=== PATIENT | male | born 1945 | race Caucasian/White ===

== ENCOUNTER 2021-11-03 13:37 | Outpatient (CLI) | payer MEDICARE ==
[2021-11-03 19:04] LABS: ALBUMIN 4.3 g/dL (3.2-5.5); ALBUMIN/GLOBULIN RATIO 1.3 (1.0-2.2); BILIRUBIN,TOTAL 0.7 mg/dL (0.2-1.0); CALCIUM 9.2 mg/dL (8.5-10.3); POTASSIUM 4.3 mmol/L (3.5-5.0); TOTAL PROTEIN 7.5 g/dL (6.7-8.2)
[2021-11-03 19:08] LABS: HCT - HEMATOCRIT 49.9 % (42.0-52.0); HGB - HEMOGLOBIN 16.8 g/dL (14.0-18.0); MEAN CORPUSCULAR HEMOGLOBIN 31.5 pg (27.0-31.0); MEAN CORPUSCULAR HGB CONC 33.7 g/dL (32.0-36.0); MEAN CORPUSCULAR VOLUME 93.6 fL (80.0-94.0); MEAN PLATELET VOLUME 9.9 fL (7.4-11.4); RED BLOOD COUNT 5.33 10^6/uL (4.70-6.10); RED CELL DISTRIBUTION WIDTH 14.2 % (12.0-15.0); WHITE BLOOD COUNT 7.2 x10^3/uL (4.8-10.8)
== END 2021-11-03 13:38 | disposition home or self-care (01) ==
LOC: LAB.S 13:37
PROVIDERS: ATTEND Internal Medicine Cardiovascular Disease
DX: I48.91 Unspecified atrial fibrillation (principal)
CPT/HCPCS: 36415; 80053; 85027

== ENCOUNTER 2023-01-29 08:00 | Outpatient (CLI) | payer MEDICARE, OTHER | END 2023-01-29 23:59 | disposition home or self-care (01) | LOC: LAB 08:00 | PROVIDERS: ATTEND Emergency Medicine | DX: H60.93 Unspecified otitis externa, bilateral (principal) | CPT/HCPCS: 87070 ==

== ENCOUNTER 2023-06-30 08:00 | Outpatient (CLI) | payer MEDICARE, OTHER ==
--- NOTE | 2023-07-01 10:16 | XRAY Report ---
PROCEDURE: Chest 2V INDICATIONS: DYSPNEA TECHNIQUE: 2 views of the chest were acquired. COMPARISON: CT 01/31/2010 FINDINGS: Surgical changes and devices: None. Lungs and pleura: No pleural effusions or pneumothorax. Lungs are clear. Mediastinum: Mediastinal contours appear normal. Heart size is normal. Bones and chest wall: No suspicious bony lesions. Overlying soft tissues appear unremarkable. IMPRESSION: No acute cardiopulmonary process. Reviewed by: Garcia Temple MD on 07/01/2023 10:15 AM PDT Approved by: Garcia Temple MD on 07/01/2023 10:15 AM PDT Station ID: [id number]
== END 2023-06-30 23:59 | disposition home or self-care (01) ==
LOC: DI.S 08:00
PROVIDERS: ATTEND Emergency Medicine
DX: R06.00 Dyspnea, unspecified (principal); I48.91 Unspecified atrial fibrillation

== ENCOUNTER 2023-06-30 19:29 | Emergency (ER) | payer MEDICARE, OTHER ==
[2023-06-30 20:08] LABS: BASOPHILS # (AUTO) 0.1 10^3/uL (0.0-0.1); BASOPHILS % (AUTO) 0.7 %; EOSINOPHILS # (AUTO) 0.2 10^3/uL (0.0-0.7); EOSINOPHILS % (AUTO) 1.7 %; HCT - HEMATOCRIT 52.8 % (42.0-52.0); HGB - HEMOGLOBIN 17.1 g/dL (14.0-18.0); LYMPHOCYTES # (AUTO) 2.1 10^3/uL (1.5-3.5); LYMPHOCYTES % (AUTO) 23.2 %; MEAN CORPUSCULAR HEMOGLOBIN 29.6 pg (27.0-31.0); MEAN CORPUSCULAR HGB CONC 32.4 g/dL (32.0-36.0); MEAN CORPUSCULAR VOLUME 91.3 fL (80.0-94.0); MEAN PLATELET VOLUME 9.1 fL (7.4-11.4); MONOCYTES # (AUTO) 0.9 10^3/uL (0.0-1.0); NEUTROPHILS # (AUTO) 5.8 10^3/uL (1.5-6.6); NEUTROPHILS % (AUTO) 64.2 %; PLT - PLATELET COUNT 259 10^3/uL (130-450); RED BLOOD COUNT 5.78 10^6/uL (4.70-6.10); RED CELL DISTRIBUTION WIDTH 14.5 % (12.0-15.0)
--- NOTE | 2023-06-30 20:12 | ED Physician Documentation ---
History of Present Illness - Stated complaint Stated Complaint: HIGH HR - Chief complaint Chief Complaint: Cardiac - History obtained from History obtained from: Patient - Additonal information Additional information: 78-year-old gentleman who is on Xarelto for atrial fibrillation felt inexplicably fatigued yesterday and today after picking up brush on his property. There is no shortness of breath nor was there any chest pain. He has a history of paroxysmal atrial fibrillation and feels like he might be in it. PD PAST MEDICAL HISTORY - Present Medications Home Medications: Ambulatory Orders Medication Instructions Recorded Confirmed Albuterol Sulf [Ventolin Hfa 1 - 2 puffs IH Q4HR PRN 06/30/23 06/30/23 Inhaler] Atorvastatin [Lipitor] 10 mg ORAL DAILY 06/30/23 06/30/23 Rivaroxaban [Xarelto] 20 mg PO DAILY 06/30/23 06/30/23 - Allergies Allergies/Adverse Reactions: Allergies Allergy/AdvReac Type Severity Reaction Status Date / Time No Known Drug Allergies Allergy Verified 06/30/23 19:45 PD ED PE NORMAL - Vitals Vital signs reviewed: Yes - General General: Alert and oriented X 3, No acute distress - HEENT HEENT: PERRL, EOMI - Cardiac Cardiac: Other (Irregularly irregular without murmur, rapid) - Respiratory Respiratory: No respiratory distress, Clear bilaterally - Abdomen Abdomen: Non tender - Extremities Extremities: No edema - Neuro Neuro: Alert and oriented X 3, Normal speech Results - Vitals Vitals: Vital Signs - 24 hr 06/30/23 06/30/23 06/30/23 19:32 20:08 21:40 Temperature 36.2 C L Heart Rate 123 H 136 H 110 H Respiratory 18 18 19 Rate Blood Pressure 121/93 H 143/102 H 106/80 O2 Saturation 98 96 96 06/30/23 22:30 Temperature Heart Rate 81 Respiratory 14 Rate Blood Pressure O2 Saturation Oxygen O2 Source Room air - EKG (time done) 1950 EKG releavant findings:: EKG personally interpreted by author of this note. Relevant findings are: Rate: Rate (enter#) (144) Rhythm: Atrial fibrillation [place]: Normal Ischemia: Non specific changes. No: ST elevation c/w ischemia - Labs Labs: Laboratory Tests 06/30/23 06/30/23 20:00 20:00 WBC 9.0 RBC 5.78 Hgb 17.1 Hct 52.8 H MCV 91.3 MCH 29.6 MCHC 32.4 RDW 14.5 Plt Count 259 MPV 9.1 Neut # (Auto) 5.8 Lymph # (Auto) 2.1 [place] # (Auto) 0.9 Eos # (Auto) 0.2 Baso # (Auto) 0.1 Absolute Nucleated RBC 0.00 Nucleated RBC % 0.0 Sodium 139 Potassium 3.6 Chloride 105 Carbon Dioxide 24 Anion Gap 10.0 BUN 23 H Creatinine 1.2 Estimated GFR (MDRD) 58 L Glucose 103 Calcium 9.7 Magnesium 1.9 Total Bilirubin 0.8 AST 19 ALT 22 Alkaline Phosphatase 82 Total Protein 6.9 Albumin 4.2 Globulin 2.7 Albumin/Globulin Ratio 1.6 TSH 4.66 Procedures - Procedural sedation Sedation prep: Informed consent, PE performed, ASA 2 - mild disease Sedation Medications: propofol (100mg ivp x 1) Mallampati classification: II Patient status during sedation: Unresponsive Sedation recovery: Recovered uneventfully Time in sedation (Minutes): 12 - Cardioversion - Major 1020pm Time of attempt: 22:20 Indication: Tachyarrhythmia Risks, benefits, alternatives explained to: Pt CS via: Pads, AP approach Sync: 100j Post cardioversion rhythm: NSR Performed by: ED MD ROJAS Medical Decision Making - ED course ED course: 78-year-old gentleman with symptomatic atrial fibrillation. He has no ischemic chest pain. He was in RVR. He was administered 20 mg of IV diltiazem with rate control. Subsequently labs were done which were unremarkable as far as CBC, CMP, TSH. He was started on procainamide drip which did not result in rhythm control and subsequently consented for synchronized cardioversion which went well and he was cardioverted into sinus rhythm after the first shock. He recovered well and was asymptomatic on discharge. Departure - Departure Disposition: 01 Home, Self Care Clinical Impression: Atrial fibrillation Qualifiers: Atrial fibrillation type: paroxysmal Qualified Code(s): I48.0 - Paroxysmal atrial fibrillation Condition: Good Record reviewed to determine appropriate education?: Yes Instructions: Atrial Fibrillation Dc Comments: You should call your gm and let them know you had an episode of symptomatic atrial fibrillation. For this we originally rate controlled with IV diltiazem and then did a procainamide drip. This did not convert you to normal sinus rhythm so after discussion and consent you were cardioverted under propofol sedation (100 mg) at a dose of 100 J successfully into normal sinus rhythm. Do not drive tonight. Return if worse. Forms: PCP List
[2023-06-30] MEDS: diltiaZEM INJ 5 MG/ML VIAL IVP STA (20:23)
[2023-06-30 20:26] LABS: ALBUMIN 4.2 g/dL (3.2-5.5); ALBUMIN/GLOBULIN RATIO 1.6 (1.0-2.2); BILIRUBIN,TOTAL 0.8 mg/dL (0.2-1.0); CALCIUM 9.7 mg/dL (8.5-10.3); CREATININE 1.2 mg/dL (0.6-1.3); MAGNESIUM 1.9 mg/dL (1.7-2.3); POTASSIUM 3.6 mmol/L (3.5-4.5); TOTAL PROTEIN 6.9 g/dL (6.4-8.9)
[2023-06-30] MEDS ORDERED: PROCAINAMIDE 1,000 MG/10 ML SYRINGE ONE (20:26)
[2023-06-30] MEDS: PROCAINAMIDE 1,000 MG in SODIUM CHLORIDE 0.9% 240 ML IV STA (20:28)
[2023-06-30 20:37] LABS: THYROID STIMULATING HORMONE 4.66 uIU/mL (0.34-5.60)
[2023-06-30] MEDS: PROPOFOL 200 MG/20 ML VIAL IVP STA (22:19)
[2023-06-30 23:11] VITALS: BP 112/85; O2SAT 96
== END 2023-06-30 23:05 | disposition home or self-care (01) ==
LOC: ED 19:29
DX: I48.0 Paroxysmal atrial fibrillation (principal); Z79.01 Long term (current) use of anticoagulants; R06.00 Dyspnea, unspecified
CPT/HCPCS: 36415; 71046; 80053; 83735; 84443; 85025; 92960; 93005; 96365; 96375; 99152; 99285; J2690

== ENCOUNTER 2023-07-12 13:38 | Emergency (ER) | payer MEDICARE, OTHER ==
[2023-07-12 13:55] VITALS: O2SAT 98
[2023-07-12 14:15] LABS: BASOPHILS # (AUTO) 0.1 10^3/uL (0.0-0.1); BASOPHILS % (AUTO) 0.8 %; EOSINOPHILS # (AUTO) 0.2 10^3/uL (0.0-0.7); EOSINOPHILS % (AUTO) 2.5 %; HCT - HEMATOCRIT 50.6 % (42.0-52.0); HGB - HEMOGLOBIN 16.5 g/dL (14.0-18.0); LYMPHOCYTES # (AUTO) 2.2 10^3/uL (1.5-3.5); LYMPHOCYTES % (AUTO) 26.3 %; MEAN CORPUSCULAR HEMOGLOBIN 30.1 pg (27.0-31.0); MEAN CORPUSCULAR HGB CONC 32.6 g/dL (32.0-36.0); MEAN CORPUSCULAR VOLUME 92.2 fL (80.0-94.0); MEAN PLATELET VOLUME 9.2 fL (7.4-11.4); MONOCYTES # (AUTO) 0.8 10^3/uL (0.0-1.0); MONOCYTES % (AUTO) 9.8 %; NEUTROPHILS # (AUTO) 5.1 10^3/uL (1.5-6.6); NEUTROPHILS % (AUTO) 60.1 %; PLT - PLATELET COUNT 229 10^3/uL (130-450); RED BLOOD COUNT 5.49 10^6/uL (4.70-6.10); RED CELL DISTRIBUTION WIDTH 14.2 % (12.0-15.0); WHITE BLOOD COUNT 8.5 x10^3/uL (4.8-10.8)
[2023-07-12 14:22] LABS: INR 2.3 (0.8-1.2); PT - PROTHROMBIN TIME 23.9 secs (9.9-12.6)
[2023-07-12 14:25] LABS: ALBUMIN 4.2 g/dL (3.2-5.5); ALBUMIN/GLOBULIN RATIO 1.5 (1.0-2.2); BILIRUBIN,TOTAL 0.6 mg/dL (0.2-1.0); CALCIUM 9.5 mg/dL (8.5-10.3); CREATININE 1.1 mg/dL (0.6-1.3); POTASSIUM 4.1 mmol/L (3.5-4.5)
--- NOTE | 2023-07-12 15:28 | ED Physician Documentation ---
PD HPI FOCAL NEURO - Stated complaint Stated Complaint: LEFT SIDED NUMBNESS - Chief complaint Chief Complaint: Neuro - History obtained from History obtained from: Patient - Additional information Additional information: 78-year-old gentleman with history of A-fib still maintained on Xarelto and had a Watchman procedure 5 days ago. He was sitting in his car today waiting for his family in the grocery store. He started develop weakness and numbness of both the left arm and leg which lasted about 3 minutes and resolved. Now feels completely back to normal. There is no associated chest pain or trouble breathing. He has been compliant with his Xarelto. No history of TIA or stroke. PD PAST MEDICAL HISTORY - Past Medical History Past Medical History: Yes Cardiovascular: High cholesterol, Atrial fibrillation Respiratory: Asthma Neuro: None Endocrine/Autoimmune: None GI: None : Kidney stones HEENT: None Psych: None Musculoskeletal: Osteoarthritis Derm: Eczema - Past Surgical History Past Surgical History: Yes Ortho: Arthroscopic surgery, Other Cardiovascular: Pacemaker - Present Medications Home Medications: Ambulatory Orders Medication Instructions Recorded Confirmed Albuterol Sulf [Ventolin Hfa 1 - 2 puffs IH Q4HR PRN 06/30/23 06/30/23 Inhaler] Atorvastatin [Lipitor] 10 mg ORAL DAILY 06/30/23 06/30/23 Rivaroxaban [Xarelto] 20 mg PO DAILY 06/30/23 06/30/23 - Allergies Allergies/Adverse Reactions: Allergies Allergy/AdvReac Type Severity Reaction Status Date / Time No Known Drug Allergies Allergy Verified 07/12/23 13:47 - Social History Does the pt smoke?: No Smoking Status: Never smoker Does the pt drink ETOH?: No Does the pt have substance abuse?: No - Immunizations Immunizations are current?: Yes PD ED PE NORMAL - Vitals Vital signs reviewed: Yes - General General: Alert and oriented X 3, No acute distress - HEENT HEENT: PERRL, EOMI - Neck Neck: Supple, no meningeal sign, No bony TTP - Cardiac Cardiac: RRR, No murmur - Respiratory Respiratory: No respiratory distress, Clear bilaterally - Abdomen Abdomen: Soft, Non tender - Back Back: No CVA TTP, No spinal TTP - Derm Derm: Normal color, Warm and dry - Extremities Extremities: No edema, No calf tenderness / cord - Neuro Neuro: Alert and oriented X 3, hot box checker 2-12 intact, Normal speech Eye Opening: Spontaneous Motor: Obeys Commands Verbal: Oriented GCS Score: 15 NIHSS - Time Time: 15:20 - Level of Consciousness Level of consciousness: (0) Alert, Keenly responsive LOC Questions: (0) Answers both Q's correct LOC Commands: (0) Performs both correctly - Gaze Best Gaze: (0) Normal - Visual Visual: (0) No loss - Facial Palsy Facial Palsy: (0) Normal, symmetrical movement - Motor Arms (both separate) Motor Arm (right): (0) No drift Motor Arm (left): (0) No drift - Motor Legs (both separate) Motor Leg (right): (0) No drift Motor Leg (left): (0) No drift - Limb Ataxia Limb Ataxia: (0) Absent - Sensory Sensory: (0) Normal - Best Language Best Language: (0) No aphasia - Dysarthria Dysarthria: (0) Normal - Extinction and Inattention (formally neg Extinction and inattention: (0) No abnormality - Total Score/Results Total Score/Result: 0 Results - Vitals Vitals: Vital Signs - 24 hr 07/12/23 07/12/23 13:47 16:52 Temperature 36.5 C Heart Rate 71 70 Respiratory 16 15 Rate Blood Pressure 142/81 H 127/74 O2 Saturation 98 98 Oxygen O2 Source Room air - EKG (time done) 1535 EKG releavant findings:: EKG personally interpreted by author of this note. Relevant findings are: Rate: Rate (enter#) (65) Rhythm: NSR [place]: Normal Intervals: Normal [place] QRS: Normal Ischemia: Normal ST segments - Labs Labs: Laboratory Tests 07/12/23 07/12/23 07/12/23 14:00 14:00 14:00 WBC 8.5 RBC 5.49 Hgb 16.5 Hct 50.6 MCV 92.2 MCH 30.1 MCHC 32.6 RDW 14.2 Plt Count 229 MPV 9.2 Neut # (Auto) 5.1 Lymph # (Auto) 2.2 [place] # (Auto) 0.8 Eos # (Auto) 0.2 Baso # (Auto) 0.1 Absolute Nucleated RBC 0.00 Nucleated RBC % 0.0 PT 23.9 H INR 2.3 H Sodium 137 Potassium 4.1 Chloride 105 Carbon Dioxide 25 Anion Gap 7.0 BUN 20 Creatinine 1.1 Estimated GFR (MDRD) 65 L Glucose 84 Calcium 9.5 Total Bilirubin 0.6 AST 20 ALT 28 Alkaline Phosphatase 86 Total Protein 7.0 Albumin 4.2 Globulin 2.8 Albumin/Globulin Ratio 1.5 Lipase 21 - Rads (name of study) CT of the head and CT angiography of the head were negative. Relevant Findings:: Final report received, EMP independent interpretation of test PD Medical Decision Making - ED course ED course: 78-year-old gentleman with a very short TIA today. Lasting only 3 minutes in the setting of recent watchman but still anticoagulated. His NIH stroke scale is 0 and initial workup in the emergency department demonstrates a normal CBC and CMP. He does have elevation in his INR likely related to DOAC use. We will obtain CT angiography of the head and neck to evaluate for any need for vascular intervention. Subsequent CT imaging and vascular imaging of the head and neck were negative for occlusion or carotid stenosis. He remained asymptomatic here. Discussed with him that he is probably maximally medically managed but does need to follow-up with his environment artist especially given the proximity to the Watchman procedure and recommended continuation of the Xarelto until told otherwise. Departure - Departure Disposition: 01 Home, Self Care Clinical Impression: TIA (transient ischemic attack) Condition: Good Record reviewed to determine appropriate education?: Yes Instructions: ED Transient Ischemic Attack Comments: CT angiography of the head and neck as well as CT of the head was negative. That said you still had a very short TIA today and given the proximity to your Watchman procedure recommend you continue your Xarelto and follow-up with your environment artist ALEX. Return if worse. Continue current medications. Forms: PCP List Discharge Date/Time: 07/12/23 16:57
[2023-07-12] MEDS ORDERED: iohexoL-300 100 ML VIAL ONE (15:41)
[2023-07-12] MEDS: iohexoL-300 100 ML VIAL IVP ONE (16:17)
--- NOTE | 2023-07-12 16:26 | CT Report ---
PROCEDURE: Head WO INDICATIONS: tia TECHNIQUE: Noncontrast 4.5 mm thick angled axial sections acquired from the foramen magnum to the vertex. For r adiation dose reduction, the following was used: automated exposure control, adjustment of mA and/or kV according to patient size. COMPARISON: None. FINDINGS: Image quality: Excellent. CSF spaces: Basal cisterns are patent. No extra-axial fluid collections. Ventricles are normal in size and shape. Brain: No midline shift. No intracranial masses or hemorrhage. Rainey-white matter interface is norm al. Skull and face: Calvarium and visualized facial bones are intact, without suspicious lesions. Sinuses: Visualized sinuses and mastoids are clear. IMPRESSION: No acute intracranial pathology. Reviewed by: Phu Cook MD on 07/12/2023 4:24 PM PDT Approved by: Phu Cook MD on 07/12/2023 4:24 PM PDT Station ID: [id number]
--- NOTE | 2023-07-12 16:28 | CT Report ---
PROCEDURE: Angio Head/Neck INDICATIONS: tia sx TECHNIQUE: After the administration of intravenous contrast, 1 mm thick sections acquired from the aortic arch t hrough the Teller of [place]t. 3-dimensional kblnszc-zigvpppis-jxalwqhnky (MIP) and/or volume renderin g reformats were acquired of the central intracranial vasculature and neck separately. For radiation dose reduction, the following was used: automated exposure control, adjustment of mA and/or kV acco rding to patient size. CONTRAST: 80ml [id number] COMPARISON: CT head from immediately prior to this study.. FINDINGS: Image quality: Diagnostic. HEAD CT: CSF Spaces: Basal cisterns are patent. No extra-axial fluid collections. Ventricles are normal in size and shape. Brain: No significant abnormality is seen for scanning technique. Skull and face: Calvarium and visualized facial bones appear intact, without suspicious lesions. Sinuses: Visualized sinuses and mastoids are clear. HEAD CT ANGIOGRAPHY: Anterior circulation: Intracranial internal carotid arteries are normal in size and flow. The flow within the paired anterior cerebral arteries is normal and symmetric. The flow within the middle cer ebral arteries is normal and symmetric. The anterior communicating artery is seen. No aneurysms are seen. Posterior circulation: Visualized portions of the vertebral arteries demonstrate normal caliber, and join to form a normal appearing basilar artery. Flow within the posterior cerebral arteries is norm al and symmetric. No aneurysms are seen. NECK CT ANGIOGRAPHY: Carotid system: The great vessels demonstrate a conventional anatomy as they arise from the aortic a rch. The origins of the common carotid arteries appear patent. The common carotid arteries demonstr ate normal caliber and courses. The bifurcation regions are both widely patent. The internal caroti d arteries demonstrate normal calibers and courses. Posterior circulation: The origins of the vertebral arteries both appear widely patent. The more ramirez perior extracranial portions of both vertebral arteries also demonstrate normal courses and calibers. They join to form a normal appearing basilar artery. Soft tissues: Visualized neck soft tissues demonstrate no suspicious abnormalities. Bones: No suspicious bony lesions. Visualized cervical spine appears normally aligned. IMPRESSION: No significant intracranial arterial abnormality is seen. No significant abnormality is seen within the arteries of the neck. The estimate of stenosis included in the report of the imaging study was calculated using the NASCET method Reviewed by: Phu Cook MD on 07/12/2023 4:27 PM PDT Approved by: Phu Cook MD on 07/12/2023 4:27 PM PDT Station ID: [id number]
[2023-07-12 17:00] VITALS: BP 127/74
== END 2023-07-12 16:57 | disposition home or self-care (01) ==
LOC: ED 13:38
DX: G45.9 Transient cerebral ischemic attack, unspecified (principal); E78.00 Pure hypercholesterolemia, unspecified; I48.91 Unspecified atrial fibrillation; Z79.01 Long term (current) use of anticoagulants; Z79.899 Other long term (current) drug therapy
CPT/HCPCS: 36415; 70450; 70496; 70498; 80053; 83690; 85025; 85610; 93005; 99283; 99284; Q9967

== ENCOUNTER 2023-09-29 10:28 | Emergency (ER) | payer MEDICARE, OTHER ==
--- NOTE | 2023-09-29 11:15 | ED Physician Documentation ---
PD HPI CHEST PAIN - Stated complaint Stated Complaint: DIZZINESS,IRREGULAR HR/BP - Chief complaint Chief Complaint: Cardiac - History obtained from History obtained from: Patient - History of Present Illness Timing - onset: How many hours ago (2-3), Today Timing - onset during: Rest, Light activity Timing - duration: Hours Timing - details: Abrupt onset, Still present Quality: Tightness. No: Pressure, Pain Location: Left chest Worsened by: No: Exertion Associated symptoms: Shortness of air, Feeling faint / dizzy, Palpitations (feeling like heart is fast and his watch states rate 120-170 during the past couple hours.) Similar symptoms before: Diagnosis (similar to atrial fib episodes in the past, most recent about 3 months ago and was cardioverted in ED.) Recently seen: Surgery (knee replacement 6 weeks ago and Watchman placement 2 months ago. No problems with either.) Review of Systems Constitutional: denies: Fever, Chills Nose: denies: Rhinorrhea / runny nose, Congestion Throat: denies: Sore throat Cardiac: reports: Palpitations. denies: Chest pain / pressure, Pedal edema, Calf pain Respiratory: denies: Cough PD PAST MEDICAL HISTORY - Past Medical History Past Medical History: Yes Cardiovascular: High cholesterol, Atrial fibrillation Respiratory: Asthma Neuro: None Endocrine/Autoimmune: None GI: None : Kidney stones HEENT: None Psych: None Musculoskeletal: Osteoarthritis Derm: Eczema - Past Surgical History Past Surgical History: Yes Ortho: Arthroscopic surgery, Other Cardiovascular: Other - Present Medications Home Medications: Ambulatory Orders Medication Instructions Recorded Confirmed Albuterol Sulf [Ventolin Hfa 1 - 2 puffs IH Q4HR PRN 06/30/23 09/29/23 Inhaler] Atorvastatin [Lipitor] 10 mg ORAL DAILY 06/30/23 09/29/23 Aspirin [[place] Aspirin] 81 mg PO DAILY 09/29/23 09/29/23 Metoprolol Tartrate [Lopressor] 25 mg PO Q6H PRN #10 tablet 09/29/23 - Allergies Allergies/Adverse Reactions: Allergies Allergy/AdvReac Type Severity Reaction Status Date / Time No Known Drug Allergies Allergy Verified 09/29/23 10:47 - Social History Does the pt smoke?: No Smoking Status: Never smoker Does the pt drink ETOH?: No Does the pt have substance abuse?: No - Immunizations Immunizations are current?: Yes - POLST Patient has POLST: No PD ED PE NORMAL - Vitals Vital signs reviewed: Yes (HR irregular and about 120-150) - General General: Alert and oriented X 3, No acute distress, Well developed/nourished - Neck Neck: Supple, no meningeal sign, No adenopathy - Cardiac Cardiac: No murmur. No: RRR - Respiratory Respiratory: No respiratory distress, Clear bilaterally - Derm Derm: Normal color, Warm and dry - Extremities Extremities: No edema, No calf tenderness / cord - Neuro Neuro: Alert and oriented X 3, No motor deficit, No sensory deficit, Normal speech Results - Vitals Vitals: Vital Signs - 24 hr 09/29/23 09/29/23 09/29/23 10:42 11:05 11:30 Temperature 36.4 C L Heart Rate 77 123 H 116 H Respiratory 20 23 19 Rate Blood Pressure 130/115 H 104/74 155/68 H O2 Saturation 98 96 98 If not protocol : Oxygen Flow, liters/minute 09/29/23 09/29/23 09/29/23 12:01 12:06 12:12 Temperature Heart Rate 103 H 98 93 Respiratory 23 24 20 Rate Blood Pressure 99/74 102/72 101/77 O2 Saturation 98 96 99 If not protocol : Oxygen Flow, liters/minute 09/29/23 09/29/23 09/29/23 12:20 12:30 13:34 Temperature Heart Rate 87 94 99 Respiratory 20 20 23 Rate Blood Pressure 95/70 92/73 100/74 O2 Saturation 99 99 100 If not protocol : Oxygen Flow, liters/minute 09/29/23 09/29/23 09/29/23 13:59 14:16 14:17 Temperature Heart Rate 75 69 71 Respiratory 24 20 20 Rate Blood Pressure 93/77 89/67 L 89/67 L O2 Saturation 95 98 99 If not protocol 0 : Oxygen Flow, liters/minute 09/29/23 09/29/23 09/29/23 14:21 14:30 15:00 Temperature Heart Rate 63 69 65 Respiratory 15 20 20 Rate Blood Pressure 94/52 L 100/65 91/67 O2 Saturation 97 98 98 If not protocol : Oxygen Flow, liters/minute Oxygen O2 Source Room air - EKG (time done) 10:54 EKG releavant findings:: EKG personally interpreted by author of this note. Relevant findings are: Rate: Rate (enter#) (118) Rhythm: Atrial fibrillation Ischemia: Non specific changes. No: ST elevation c/w ischemia, ST depression 14:10 EKG releavant findings:: EKG personally interpreted by author of this note. Relevant findings are: Rate: Rate (enter#) (71) Rhythm: NSR [place]: Normal Intervals: Normal [place] QRS: Normal Ischemia: Normal ST segments. No: ST elevation c/w ischemia, ST depression - Labs Labs: Laboratory Tests 09/29/23 09/29/23 09/29/23 11:17 11:17 11:17 WBC 8.0 RBC 4.53 L Hgb 13.5 L Hct 42.6 MCV 94.0 MCH 29.8 MCHC 31.7 L RDW 14.7 Plt Count 260 MPV 9.0 Neut # (Auto) 5.2 Lymph # (Auto) 1.4 L [place] # (Auto) 0.7 Eos # (Auto) 0.5 Baso # (Auto) 0.1 Absolute Nucleated RBC 0.00 Nucleated RBC % 0.0 Sodium 139 Potassium 3.5 Chloride 107 Carbon Dioxide 24 Anion Gap 8.0 BUN 19 Creatinine 1.0 Estimated GFR (MDRD) 72 L Glucose 103 Calcium 9.0 Magnesium 1.7 Total Bilirubin 0.7 AST 13 ALT 16 Alkaline Phosphatase 86 Troponin I High Sens 16.8 Total Protein 6.4 Albumin 3.8 Globulin 2.6 Albumin/Globulin Ratio 1.5 Lipase 21 - Rads (name of study) chest xray Relevant Findings:: Prelim report reviewed, EMP independent interpretation of test (no acute process. ) Procedures - Procedural sedation Sedation prep: Informed consent, Time out completed, Last meal (dinner last evening, with just few pretzels this morning.), PE performed, ASA 2 - mild disease, IV O2 monitor, ET CO2 monitor, RT present Sedation Medications: propofol Mallampati classification: I Patient status during sedation: Drowsy, Responds to verbal, Vitals remained stable, Maintained airway Sedation recovery: Recovered uneventfully - Cardioversion - Major 1 Indication: Tachyarrhythmia Risks, benefits, alternatives explained to: Pt Prep: IV, O2, laboratory monitor, Pulse ox, Airway equip CS via: Pads, AP approach Sync: Biphasic, 150j Post cardioversion rhythm: NSR Performed by: ED MD ROJAS Medical Decision Making - ED course Complexity details: considered differential (onset atrial fib this morning that has not resolved on its own. Has Watchman in place. rate fast 120-170 at home. He has had cardioversion 3 times prior. Given Metoprolol for slowing but did not convert. I called Cardiology to ensure okay for cardioversion. Cardioverted without problems at pt pref.), d/w program consultant (Cardiology office to ensure no problems with cardioversion after Watchman 2 months ago (I was pretty sure not an issue but felt it reasonable to chck). Office nurse asked provider phone banker and was told no problems. ) Departure - Departure Disposition: Home, Self Care Clinical Impression: Paroxysmal atrial fibrillation Condition: Stable Record reviewed to determine appropriate education?: Yes Instructions: ED Afib Follow-Up: Desmond Whalen MD [Provider Admit Priv/Credential] - Prescriptions: Metoprolol Tartrate [Lopressor] 25 mg PO Q6H PRN #10 tablet PRN Reason: Tachycardia Comments: Stay well-hydrated. Continue usual medications. Being contact with Dr. Whalen's office and update them on the episode. I did talk with one of the emergency crew supervisor in the office today but Dr. Whalen was not in. Discuss through his nurse if you would want you to be on any daily medication or just to have "a pill in the pocket" will you take a dose of metoprolol if you get into atrial fibrillation that does not resolve within half hour to an hour. I did write a prescription for low-dose metoprolol beta-tyree for this purpose you could use in the interim if you have recurring episodes. Be sure to be well-hydrated and rested in sitting and also check your blood pressure before hand as it can lower your blood pressure a bit too and you do not want to start too low. Otherwise follow-up with Dr. Whalen and return to the ER if needed. Forms: PCP List Discharge Date/Time: 09/29/23 15:15
[2023-09-29 11:23] LABS: BASOPHILS # (AUTO) 0.1 10^3/uL (0.0-0.1); BASOPHILS % (AUTO) 1.1 %; EOSINOPHILS # (AUTO) 0.5 10^3/uL (0.0-0.7); EOSINOPHILS % (AUTO) 6.8 %; HCT - HEMATOCRIT 42.6 % (42.0-52.0); HGB - HEMOGLOBIN 13.5 g/dL (14.0-18.0); LYMPHOCYTES # (AUTO) 1.4 10^3/uL (1.5-3.5); LYMPHOCYTES % (AUTO) 17.6 %; MEAN CORPUSCULAR HEMOGLOBIN 29.8 pg (27.0-31.0); MEAN CORPUSCULAR HGB CONC 31.7 g/dL (32.0-36.0); MONOCYTES # (AUTO) 0.7 10^3/uL (0.0-1.0); NEUTROPHILS # (AUTO) 5.2 10^3/uL (1.5-6.6); NEUTROPHILS % (AUTO) 65.2 %; PLT - PLATELET COUNT 260 10^3/uL (130-450); RED BLOOD COUNT 4.53 10^6/uL (4.70-6.10); RED CELL DISTRIBUTION WIDTH 14.7 % (12.0-15.0)
--- NOTE | 2023-09-29 11:29 | XRAY Report ---
PROCEDURE: Chest 1V INDICATIONS: Chest pain TECHNIQUE: One view of the chest was acquired. COMPARISON: 06/30/2023. FINDINGS: Surgical changes and devices: None. Lungs and pleura: No pleural effusions or pneumothorax. Lungs are clear. Mediastinum: Mediastinal contours appear normal. Heart size is normal. Bones and chest wall: No suspicious bony lesions. Overlying soft tissues appear unremarkable. IMPRESSION: No acute cardiopulmonary process. Reviewed by: Phu Cook MD on 09/29/2023 11:27 AM PDT Approved by: Phu Cook MD on 09/29/2023 11:27 AM PDT Station ID: [id number]
[2023-09-29 11:46] LABS: TROPONIN I HIGH SENSITIVITY 16.8 ng/L (2.3-19.7)
[2023-09-29 11:52] LABS: ALBUMIN 3.8 g/dL (3.2-5.5); ALBUMIN/GLOBULIN RATIO 1.5 (1.0-2.2); BILIRUBIN,TOTAL 0.7 mg/dL (0.2-1.0); POTASSIUM 3.5 mmol/L (3.5-4.5); TOTAL PROTEIN 6.4 g/dL (6.4-8.9)
[2023-09-29] MEDS: METOPROLOL 5 MG/5 ML VIAL IVP STA (12:06)
[2023-09-29] MEDS: SODIUM CHLORIDE 0.9% 500 ML IV STA (12:07)
[2023-09-29] MEDS: PROPOFOL 200 MG/20 ML VIAL IVP STA (14:19)
[2023-09-29 14:47] VITALS: O2SAT 98
[2023-09-29 15:17] VITALS: BP 91/67
== END 2023-09-29 15:15 | disposition home or self-care (01) ==
LOC: ED 10:28
DX: I48.0 Paroxysmal atrial fibrillation (principal); E78.00 Pure hypercholesterolemia, unspecified; Z87.442 Personal history of urinary calculi; Z79.82 Long term (current) use of aspirin; Z79.899 Other long term (current) drug therapy
CPT/HCPCS: 36415; 80053; 83690; 83735; 84484; 85025; 92960; 93005; 99152; 99284